=== PATIENT | female | born 1980 | race African-American/Black ===

== ENCOUNTER 2024-11-14 14:49 | Emergency (ER) | payer MEDICAID ==
[~2024-11-14] VITALS: Ht 170.2 cm; Wt 59.0 kg
[2024-11-14 14:53] VITALS: O2SAT 98
[2024-11-14] MEDS: IBUPROFEN 600MG TABLET PO ONE (15:35)
[2024-11-14] MEDS ORDERED: PERM60CR20 TP (17:24)
[2024-11-14] MEDS ORDERED: IBUP-1455 MT (17:24)
[2024-11-14] MEDS ORDERED: DEXAMETHASONE 1 MG/ML ORAL SYR PO ONE (17:30)
[2024-11-14 18:07] VITALS: BP 133/91; PULSE 72; RESP 16; TEMP 36.7; O2SAT 100
[2024-11-14] MEDS: DEXAMETHASONE 10 MG/ML VIAL PO NR (18:14)
== END 2024-11-14 18:13 | disposition home or self-care (01) ==
LOC: ER 14:49
DX: B86 Scabies (principal); Z59.00 Homelessness unspecified
CPT/HCPCS: 99282; 99283; J8540

== ENCOUNTER 2024-11-14 21:17 | Emergency (ER) | payer MEDICAID ==
[~2024-11-14] VITALS: Ht 170.2 cm; Wt 52.0 kg
[~2024-11-14 21:17] MED LIST: IBUP-2029 MT; PERM60CR4 TP
[2024-11-14 21:30] VITALS: BP 136/94; PULSE 87; RESP 20; TEMP 36.6; O2SAT 97
== END 2024-11-14 23:17 | disposition home or self-care (01) ==
LOC: ER 21:17
DX: B86 Scabies (principal)
CPT/HCPCS: 99282